=== PATIENT | female | born 1950 | race African-American/Black ===

== ENCOUNTER 2017-01-27 19:02 | Emergency (ER) | payer MEDICARE ==
[~2017-01-27] VITALS: Ht 165.1 cm; Wt 72.6 kg
--- NOTE | 2017-01-27 19:05 | NUR ---
TO BED 8 A 66 YO FEMALE PATIENT BIBSELF C/O EPIGASTRIC PAIN X 1 WEEK. NAD NOTED. VSS. NONDIAPHORETIC. NO SOB. PLACED. ON CARDIAC AND VS MONITORING. COMFORT MEASURES RENDERED.
--- NOTE | 2017-01-27 19:10 | NUR ---
STARTED A SALINE LOCK ON THE RAC G20, BLOOD DRAWN AND SENT TO LAB.
[2017-01-27] MEDS ORDERED: PANTOPRAZOLE 40 MG TABLET.DR PO ONE ×2 (19:42→20:00)
[2017-01-27 19:45] LABS: BASOPHILS # (AUTO) 0.1 /CMM (0.0-0.2); BASOPHILS % (AUTO) 0.7 % (0.0-2.0); EOSINOPHILS # (AUTO) 0.2 /CMM (0.0-0.7); HEMATOCRIT 42 % (33-45); HEMOGLOBIN 13.8 g/dL (11.5-14.8); LYMPHOCYTES # (AUTO) 3.3 /CMM (0.8-4.8); LYMPHOCYTES % (AUTO) 32.7 % (20.0-44.0); MEAN CORPUSCULAR HEMOGLOBIN 27 PG (26.0-33.0); MEAN CORPUSCULAR HGB CONC 33 g/dl (31.0-36.0); MEAN CORPUSCULAR VOLUME 82 fL (82-100); MONOCYTES # (AUTO) 0.8 /CMM (0.1-1.30); MONOCYTES % (AUTO) 7.9 % (2.0-12.0); NEUTROPHILS # (AUTO) 5.7 /CMM (1.8-8.9); NEUTROPHILS % (AUTO) 56.7 % (43.0-81.0); PLATELET COUNT (AUTO) 342 /CMM (150-450); RDW COEFFICIENT OF VARIATION 13.5 (11.5-15.0); RED BLOOD CELL COUNT(AUTO) 5.16 MIL/uL (4.0-5.2); WHITE BLOOD COUNT (AUTO) 10.1 K/uL (4.3-11.0)
--- NOTE | 2017-01-27 19:49 | NUR ---
MEDICATED PATIENT ORDERED.
[2017-01-27 20:03] LABS: CALCIUM, SERUM 9.4 mg/dL (8.5-10.1); CARBON DIOXIDE 30 mmol/L (21-32); CHLORIDE 106 mmol/L (98-107); GLUCOSE 106 mg/dL (74-106); POTASSIUM 3.5 mmol/L (3.5-5.1); SODIUM SERUM 142 mmol/L (136-145); UREA NITROGEN, BLOOD 19 mg/dL (7-18)
[2017-01-27 20:12] LABS: TROPONIN I < 0.017 ng/mL (0.00-0.056)
[2017-01-27 20:14] LABS: INR 0.96 (0.87-1.13)
--- NOTE | 2017-01-27 20:37 | NUR ---
ONGOING DOPPLER JUN AT BEDSIDE.
--- NOTE | 2017-01-27 22:00 | NUR ---
IV removed. Catheter intact and site benign. Pressure and 4x4 applied to site. No bleeding noted.
--- NOTE | 2017-01-27 22:06 | NUR ---
Patient discharged to home in stable condition. Written and verbal after care instructions given. Patient verbalizes understanding of instruction.
[2017-01-27 22:07] VITALS: BP 141/77
== END 2017-01-27 22:08 | disposition home or self-care (01) ==
LOC: ER 19:09
DX: R10.13 Epigastric pain (principal); L03.116 Cellulitis of left lower limb; F10.10 Alcohol abuse, uncomplicated
CPT/HCPCS: 36415; 71010; 80048; 84484; 85025; 85730; 93005; 93971; 99285; A4606; Z7610